=== PATIENT | male | born 1955 | race Caucasian/White ===

== ENCOUNTER 2020-02-05 16:11 | Emergency (ER) | payer OTHER ==
[~2020-02-05] VITALS: Ht 185.4 cm; Wt 143.8 kg
[2020-02-05 16:14] VITALS: BP 164/119
--- NOTE | 2020-02-05 16:48 | NUR ---
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
[2020-02-05] MEDS ORDERED: DIPH,PERTUSS(ACELL),TET VAC/PF 0.5 ML IM-VACC ONE ×2 (17:00→17:09)
[2020-02-05] MEDS ORDERED: SODIUM CHLORIDE FLUSH 10ML SYR IVF ONE (17:00)
[2020-02-05] MEDS ORDERED: BUPIVACAINE 0.25% ONE (17:09)
[2020-02-05] MEDS ORDERED: LIDOCAINE-MPF 1%, 5ML ONE (17:09)
--- NOTE | 2020-02-05 17:47 | NUR ---
PT MEDICATED PER MAR BY TASK RN, RINA. PT RESTING COMFORTABLY IN [facility], AWAITING PROVIDER FOR SUTURING. PT DENIES ANY OTHER NEEDS AT THIS TIME.
[2020-02-05] MEDS ORDERED: NEOSPORIN OINT. PKT 1 PACKET ONE (19:36)
== END 2020-02-05 20:21 | disposition home or self-care (01) ==
LOC: ED 17:02
DX: S66.221A Laceration of extensor muscle, fascia and tendon of right thumb at wrist and hand level, initial encounter (principal); S61.011A Laceration without foreign body of right thumb without damage to nail, initial encounter; X58.XXXA Exposure to other specified factors, initial encounter; Y93.89 Activity, other specified; Y92.009 Unspecified place in unspecified non-institutional (private) residence as the place of occurrence of the external cause; Y99.8 Other external cause status
CPT/HCPCS: 12042; 90471; 90715; 99285